=== PATIENT | female | born 1990 | race Caucasian/White ===

== ENCOUNTER 2017-06-09 10:00 | Emergency (ER) | payer OTHER ==
[~2017-06-09] VITALS: Ht 177.8 cm; Wt 81.6 kg
[2017-06-09 10:16] VITALS: BP 114/56
== END 2017-06-09 11:07 | disposition home or self-care (01) ==
LOC: ER 10:09
DX: L23.9 Allergic contact dermatitis, unspecified cause (principal)
CPT/HCPCS: 99281; A4606; Z7610; Z7502